=== PATIENT | female | born 1975 | race Caucasian/White ===

== ENCOUNTER 2018-05-02 09:17 | Emergency (ER) | payer MEDICAID ==
[~2018-05-02] VITALS: Ht 154.9 cm; Wt 103.8 kg
[~2018-05-02 09:17] MED LIST: ACET325T33 PO; IBUP800T48 PO; LISI40TA3 PO; [UNRECOGNIZED DRUG - REMARK]
[2018-05-02 09:22] VITALS: BP 140/81; PULSE 106; RESP 24; Ht 154.9 cm; Wt 103.8 kg
[2018-05-02] MEDS ORDERED: NAPR-985 PO (09:40)
[2018-05-02] MEDS ORDERED: PROM6.2515 PO (09:40)
[2018-05-02] MEDS ORDERED: BENZ-6 PO (09:40)
[2018-05-02] MEDS ORDERED: PSEU-79 PO (09:40)
--- NOTE | 2018-05-02 11:18 | ERD ---
ER Documentation Chief Complaint Chief Complaint cough , headache, fever and runny nose x 5 days HPI 42-year-old female presenting with dry cough times 5 days with runny nose and ear pain. Patient had tactile fevers but has not taken medication is afebrile at today's visit. Patient denies any chest pain or shortness of breath. Denies any changes to urination or bowel movement. Denies vomiting. Medical history of diabetes [id number] and hypertension. NKDA. Surgical history C- section. Social history denies ROS All systems reviewed and are negative except as per history of present illness. Medications Home Meds Active Scripts Naproxen* (Naprosyn*) 500 Mg Tablet, 500 MG PO BID PRN for PAIN AND/OR INFLAMMATION, #30 TAB Prov:ALICIA MCLEAN PA-C 05/02/18 Benzonatate* (Tessalon Perle*) 100 Mg Capsule, 100 MG PO Q8H PRN for COUGH, #30 CAP Prov:ALICIA MCLEAN PA-C 05/02/18 Promethazine Hcl* (Promethazine Hcl* Syrup) 6.25 Mg/5 Ml Syrup, 6.25 MG PO Q6H PRN for COUGH, #100 ML Prov:ALICIA MCLEAN PA-C 05/02/18 Pseudoephedrine Hcl* (Suphedrin*) 30 Mg Tablet, 30 MG PO Q6 PRN for CONGESTION, #30 TAB Prov:ALICIA MCLEAN PA-C 05/02/18 Acetaminophen* (Tylenol*) 325 Mg Tablet, 2 TAB PO Q8 PRN for PAIN AND OR ELEVATED TEMP, #20 TAB Prov:ALICIA MCLEAN PA-C 05/18/15 Ibuprofen* (Motrin*) 800 Mg Tab, 800 MG PO Q6, #30 TAB Prov:ALICIA MCLEAN PA-C 05/18/15 Reported Medications Lisinopril* (Lisinopril*) 40 Mg Tablet, 40 MG PO DAILY, TAB 12/27/13 [unk meds] No Conflict Check 02/22/12 Allergies Allergies: Coded Allergies: No Known Drug Allergies (Verified Allergy, Unknown, 05/02/18) PMhx/Soc History of Surgery: Yes () Anesthesia Reaction: No Hx Neurological Disorder: No Hx Respiratory Disorders: No Hx Cardiac Disorders: Yes (HTN) Hx Psychiatric Problems: No Hx Miscellaneous Medical Probl: Yes (DM) Hx Alcohol Use: No Hx Substance Use: No Hx Tobacco Use: No Smoking Status: Never smoker FmHx Family History: No diabetes, No coronary disease, No other Physical Exam Vitals Vital Signs Date Temp Pulse Resp B/P (MAP) Pulse Ox O2 O2 Flow FiO2 Time Delivery Rate 05/02/18 98.8 106 24 140/81 100 09:22 (100) Physical Exam GENERAL: The patient is well-appearing, well-nourished, in no acute distress HEENT: Atraumatic. Conjunctivae are pink. Pupils equal, round, and reactive to light. There is no scleral icterus. Tympanic membranes clear bilaterally. Oropharynx clear. NECK: C-spine is soft and supple. There is no meningismus. There is no cervical lymphadenopathy. CHEST: Clear to auscultation bilaterally. There are no rales, wheezes or rhonchi. HEART: Regular rate and rhythm. No murmurs, clicks, rubs or gallops. Procedures/MDM MDM: 42-year-old female presenting with URI type symptoms. Patient likely has viral cough. I do not feel antibiotics are indicated. Patient is discharged with supportive medications and told to follow-up with primary care within 1-2 days for close evaluation. I have low suspicion for bacterial HEENT infection. I have low suspicion for meningitis or sepsis. Patient is discharged stricter precautions and told to follow-up with primary care within 1-2 days for close evaluation. All questions answered at discharge Departure Diagnosis: Primary Impression: URI (upper respiratory infection) Condition: Stable Patient Instructions: Uri, Viral, No Abx (Adult) Referrals: COMM[facility]ITY CLIN[facility] YOU HAVE RECEIVED A MEDICAL SCREENING EXAM AND THE RESULTS INDICATE THAT YOU DO NOT HAVE A CONDITION THAT REQUIRES URGENT TREATMENT IN THE EMERGENCY DEPARTMENT. FURTHER EVALUATION AND TREATMENT OF YOUR CONDITION CAN WAIT UNTIL YOU ARE SEEN IN YOUR DOCTORS OFFICE WITHIN THE NEXT 1-2 DAYS. IT IS YOUR RESPONSIBILITY TO MAKE AN APPOINTMENT FOR FOLOW-UP CARE. IF YOU HAVE A PRIMARY DOCTOR --you should call your primary doctor and schedule an appointment IF YOU DO NOT HAVE A PRIMARY DOCTOR YOU CAN CALL OUR PHYSICIAN REFERRAL HOTLINE AT IF YOU CAN NOT AFFORD TO SEE A PHYSICIAN YOU CAN CHOSE FROM THE FOLLOWING [facility] [address] [facility] [address] [facility] [address] [facility] [address] [facility]. [facility] [address] [facility]. [facility] [address] Additional Instructions: FOLLOW UP WITH YOUR PRIMARY CARE PHYSICIAN TOMORROW.Return to this facility if you are not improving as expected. ALICIA MCLEAN PA-C May 02, 2018 11:18
== END 2018-05-02 09:44 | disposition home or self-care (01) ==
LOC: FTE 09:17
DX: J06.9 Acute upper respiratory infection, unspecified (principal); E11.9 Type 2 diabetes mellitus without complications; I10 Essential (primary) hypertension
CPT/HCPCS: 99282

== ENCOUNTER 2018-09-03 10:39 | Inpatient (IN) | payer MEDICAID ==
[~2018-09-03] VITALS: Ht 154.9 cm; Wt 108.4 kg
[~2018-09-03 10:39] MED LIST changes: +BENZ-6 PO; +NAPR-985 PO; +PROM6.2515 PO; +PSEU-79 PO
[2018-09-03 10:44] VITALS: Ht 154.9 cm; Wt 108.4 kg
[2018-09-03] MEDS ORDERED: PREN1COM15 PO (10:46)
[2018-09-03] MEDS ORDERED: METF500T24 PO (10:46)
[2018-09-03] MEDS ORDERED: LACTATED RINGER'S 1,000 ML IV SCH (13:17)
[2018-09-03] MEDS ORDERED: AL HYDROX/MG HYDROX/SIMETH 30 ML CUP PO PRN (13:30)
[2018-09-03] MEDS ORDERED: DEXTROSE 50% 50 ML SYRINGE IV PRN ×2 (17:00)
[2018-09-03] MEDS ORDERED: GLUCOSE GEL 15 GRAM TUBE PO PRN ×2 (17:00)
[2018-09-03] MEDS ORDERED: GLUCAGON 1 MG INJ IM PRN (17:00)
[2018-09-03] MEDS ORDERED: GLUCOSE GEL 15 GRAM TUBE BUCCAL PRN (17:00)
[2018-09-03] MEDS ORDERED: ACCU-CHEK XX SCH ×2 (17:05→17:35)
[2018-09-03] MEDS ORDERED: metFORMIN 500 MG TAB GTB SCH (17:35)
[2018-09-03] MEDS: metFORMIN 500 MG TAB PO SCH (19:00)
[2018-09-03] MEDS: ACCU-CHEK XX SCH (20:05)
[2018-09-03] MEDS: INSULIN ASPART [NOVOLOG] 3 ML PEN SC SCH (20:18)
[2018-09-03] MEDS: BETAMET NA PHOS/AC(6 MG/ML) 2 ML INJ SYG IM SCH (20:20)
[2018-09-03] MEDS ORDERED: metFORMIN 500 MG TAB PO ONE (22:30)
--- NOTE | 2018-09-03 22:42 | HP ---
Date/Time of Note Date/Time of Note DATE: 09/03/18 TIME: 22:31 OB - History Hx of Present Free Text/Dictation 42 YO with EDC 10/17/2018 with IUP at 33.5 weeks. she reports 19 years h/o CHTN. she was on Lisinopril prior to . she was not aware that she was so she was taking Lisinopril until end of June. she stopped the Lisinopril, but was not given any other medication to control her BP. she also gives 2 year h/o DM. she was on Metformin prior to . HgbA1C was 6.5 on 07/20/2018. Her initial PNC visit was 08/06/2018 and her BP was 036/84. she was 29.5 weeks at that time. she was sent to Triage for PIH evaluation. she had elevated BP in Triage. she was admitted to antepartum for steroids and further evaluation. Dr. Edmonds provided sliding scale. she denies headache, visual changes or RUQ pain. she denies UC, LOF per vagina or vaginal bleeding. she reports good FM. NST is reassuring. Care: Limited Care Obstetrical Complications: Other (Chronic Hypertension, Diabetes Type 2, Obesity, Late onset of care, AMA) Medical Complications: Other (Chronic Hypertension, Diabetes Type 2, Obesity) Past Family/Social History * Past Medical, Surgical, Family and Obstetric Histories reviewed from chart. OB Admission Exam Physical Exam HEENT: WNL Heart: Rhythm Normal Lungs: Clear, Equal Abdomen: WNL Extremities: Normal Reflexes: Normal Last 72 hourBlood Glucose Bedside Glucose - 72 Hours Test 09/03/18 20:05 Bedside Glucose 154 mg/dL (70-220) Last 72 hours Lab Results CBC & BMP 09/03/18 10:57 Liver Function Test 09/03/18 10:57 Alanine Aminotransferase (ALT/SGPT) 19 Albumin 3.8 Alkaline Phosphatase 104 Aspartate Amino Transf (AST/SGOT) 16 Direct Bilirubin 0.00 Total Protein 7.0 OB Assessment/Plan Other Assessment: IUP at 33.5 weeks Chronic Hypertension Diabetes Type 2 Obesity Late onset of care AMA r/o superimposed preeclampsia Other plan: 24 hour urine collection PIH labs are normal Steroids JASSON WORLEY MD September 03, 2018 22:41
[2018-09-04] MEDS ORDERED: metFORMIN 500 MG TAB PO SCH (08:05)
[2018-09-04] MEDS: ACCU-CHEK XX SCH ×4 (08:40→20:58)
[2018-09-04] MEDS: metFORMIN 500 MG TAB PO SCH ×2 (08:57→17:48)
[2018-09-04] MEDS: FERROUS SULFATE (EC) 325 MG TAB PO SCH (08:57)
[2018-09-04] MEDS: DOCUSATE SODIUM 100 MG CAP PO SCH (08:57)
[2018-09-04] MEDS: PRENATAL VITAMIN PO SCH (08:57)
[2018-09-04] MEDS ORDERED: PRENATAL VITAMIN PO SCH (09:00)
[2018-09-04] MEDS ORDERED: LACTATED RINGER'S 1,000 ML IV SCH (10:00)
--- NOTE | 2018-09-04 10:02 | PN ---
Date/Time of Note Date/Time of Note DATE: 09/04/18 TIME: 10:01 OB Subjective Subjective Subjective Denies UC, LOF per vagina or vaginal bleeding reports good FM Denies headache, visual changes or RUQ pain OB Objective HEENT: WNL Heart: Rhythm Normal Lungs: Clear Abdomen: WNL OB Assessment/Plan Other Assessment: Other Assessment: IUP at 33.5 weeks Chronic Hypertension Diabetes Type 2 Obesity Late onset of care AMA r/o superimposed preeclampsia Other plan: Other plan: 24 hour urine collection PIH labs are normal Steroids JASSON WORLEY MD September 04, 2018 10:02
[2018-09-04] MEDS: BETAMET NA PHOS/AC(6 MG/ML) 2 ML INJ SYG IM SCH (15:00)
[2018-09-04] MEDS: INSULIN ASPART [NOVOLOG] 3 ML PEN SC SCH ×2 (15:38→21:03)
[2018-09-04] MEDS ORDERED: BETAMET NA PHOS/AC(6 MG/ML) 2 ML INJ SYG IM SCH (22:00)
[2018-09-05] MEDS: PRENATAL VITAMIN PO SCH (08:29)
[2018-09-05] MEDS: DOCUSATE SODIUM 100 MG CAP PO SCH (08:29)
[2018-09-05] MEDS: FERROUS SULFATE (EC) 325 MG TAB PO SCH (08:30)
[2018-09-05] MEDS: metFORMIN 500 MG TAB PO SCH ×2 (08:32→17:59)
--- NOTE | 2018-09-05 09:12 | QN ---
Documentation Comment OB Subjective Subjective Subjective Denies UC, LOF per vagina or vaginal bleeding reports good FM Denies headache, visual changes or RUQ pain OB Objective OB Objective HEENT: WNL Heart: Rhythm Normal Lungs: Clear Abdomen: WNL OB Assessment/Plan OB Assessment/Plan Other Assessment: Other Assessment: IUP at 33.5 weeks Chronic Hypertension Diabetes Type 2. BS are high due to steroids, expect improvement in a day or 2 Obesity Late onset of care AMA No evidence of current preeclampsia. she has normal PIH labs and 24 hour urine collection. she denies headache, visual changes or RUQ pain. Other plan: Other plan: Start Labetalol 200 mg TID if OK with Dr. Edmonds then d/c home on Labetalol after BS are improved. will need NST/JACY 2x week JASSON WORLEY MD September 05, 2018 09:12
[2018-09-05] MEDS: INSULIN ASPART [NOVOLOG] 3 ML PEN SC SCH ×3 (10:41→20:26)
[2018-09-05] MEDS ORDERED: LABETALOL 200 MG TAB PO SCH (14:00)
--- NOTE | 2018-09-05 15:11 | CONS ---
Consultation Date/Type/Reason Admit Date/Time September 03, 2018 at 11:55 Date of Consultation: September 04, 2018 Type of Consult Medicine Reason for Consultation Requested by Dr. Mendieta to certified lactation counselor mother regarding anticipated outcome and course of infant born at 33 completed weeks. Mother is a 42 yo [id number] with EDC 10/17/2018 (EGA 33 6/7 wks). complicated by morbid obesity, chronic hypertension, and Type 2 diabetes. Mother admitted 09/03 for evaluation of possible superimposed PIH. Mother receiving Betamethasone. 24 hour urine collection and maternal labs not supportive of PIH. Met with mother and asset protection manager at bedside and discussed certain NICU admission at this gestation. Discussed potential respiratory morbidity associated with prematurity but emphasized beneficial effects of steroids. Discussed neurologic immaturity in terms of feeding problems which will most likely determine the duration of hospitalization, as well as body temperature maintenance. Discussed possibility of infection and potential complications. Mother appeared to understand the mjor complications of at this gestation and asked appropriate questions. Assured mother of availability to answer additional questions which may arise Date/Time of Note DATE: 09/05/18 TIME: 14:55 Past Medical History Home Meds Reported Medications Metformin Hcl* (Metformin Hcl*) 500 Mg Tablet, 500 MG PO WITH BREAKFAST, #30 TAB 09/03/18 Vit #105/Iron/FA/Dha (Prena1 True Combo Pack) 1 Each Combo..pkg, 1 EACH PO 09/03/18 Medications Current Medications Prenat Multivit/ [place]/Iron/Folic Ac () 1 tab DAILY PO Last administered on 09/05/18at 08:29; Admin Dose 1 TAB; Start 09/04/18 at 09:00 Ferrous Sulfate (Ferrous Sulfate (Ec)) 325 mg DAILY PO Last administered on 09/05/18at 08:30; Admin Dose 325 MG; Start 09/04/18 at 09:00 Docusate Sodium (Colace) 100 mg DAILY PO Last administered on 09/05/18at 08:29; Admin Dose 100 MG; Start 09/04/18 at 09:00 Metformin HCl (Glucophage) 500 mg WITH DINNER PO Last administered on 09/04/18at 17:48; Admin Dose 500 MG; Start 09/03/18 at 18:05 Metformin HCl (Glucophage) 500 mg WITH BREAKFAST PO Last administered on 09/05/18at 08:32; Admin Dose 500 MG; Start 09/04/18 at 08:05 Al Hydrox/Mg Hydrox/Simethicone (Mag-Al Plus) 30 ml Q6H PRN PO .GI UPSET; Start 09/03/18 at 13:30 Diagnostic Test (Pha) (Accu-Chek) 1 ea FBSPP XX Last administered on 09/04/18at 20:58; Admin Dose 1 EA; Start 09/03/18 at 20:05 Insulin Aspart (Novolog Insulin Pen) NOVOLOG *CUSTOM* ALGORITHM 2 HOURS AFTER MEALS SC Last administered on 09/05/18at 14:34; Admin Dose 4 UNIT; Start 09/03/18 at 20:05 Miscellaneous Information 1 ea NOTE XX ; Start 09/03/18 at 17:00 Glucose (Glutose) 15 gm Q15M PRN PO DECREASED GLUCOSE; Start 09/03/18 at 17:00 Glucose (Glutose) 22.5 gm Q15M PRN PO DECREASED GLUCOSE; Start 09/03/18 at 17:00 Dextrose (D50w Syringe) 25 ml Q15M PRN IV DECREASED GLUCOSE; Start 09/03/18 at 17:00 Dextrose (D50w Syringe) 50 ml Q15M PRN IV DECREASED GLUCOSE; Start 09/03/18 at 17:00 Glucagon (Glucagen) 1 mg Q15M PRN IM DECREASED GLUCOSE; Start 09/03/18 at 17:00 Glucose (Glutose) 15 gm Q15M PRN BUCCAL DECREASED GLUCOSE; Start 09/03/18 at 17 :00 Allergies: Coded Allergies: No Known Drug Allergies (Verified Allergy, Unknown, 09/03/18) Social History Smoking Status: Never smoker Exam/Review of Systems Results Result Diagram: 09/03/18 1057 09/03/18 1057 Results 24hrs Laboratory Tests Test 09/04/18 15:10 09/04/18 15:30 09/04/18 20:36 09/05/18 08:32 Bedside Glucose 160 170 157 Urine Random 72.37 Creatinine Urine Collection 24 Duration Urine Total Volume 2200 24 Hours Urine Creatinine 24 Timed Creatinine Clearance 212.6 H Urine Total Volume 2200 (Protein) Urine Total Protein 198.0 24 Hour Test 09/05/18 10:34 09/05/18 14:29 Bedside Glucose 171 150 Medications Medication Current Medications Prenat Multivit/ [place]/Iron/Folic Ac () 1 tab DAILY PO Last administered on 09/05/18at 08:29; Admin Dose 1 TAB; Start 09/04/18 at 09:00 Ferrous Sulfate (Ferrous Sulfate (Ec)) 325 mg DAILY PO Last administered on 09/05/18at 08:30; Admin Dose 325 MG; Start 09/04/18 at 09:00 Docusate Sodium (Colace) 100 mg DAILY PO Last administered on 09/05/18at 08:29; Admin Dose 100 MG; Start 09/04/18 at 09:00 Metformin HCl (Glucophage) 500 mg WITH DINNER PO Last administered on 09/04/18at 17:48; Admin Dose 500 MG; Start 09/03/18 at 18:05 Metformin HCl (Glucophage) 500 mg WITH BREAKFAST PO Last administered on 09/05/18at 08:32; Admin Dose 500 MG; Start 09/04/18 at 08:05 Al Hydrox/Mg Hydrox/Simethicone (Mag-Al Plus) 30 ml Q6H PRN PO .GI UPSET; Start 09/03/18 at 13:30 Diagnostic Test (Pha) (Accu-Chek) 1 ea FBSPP XX Last administered on 09/04/18at 20:58; Admin Dose 1 EA; Start 09/03/18 at 20:05 Insulin Aspart (Novolog Insulin Pen) NOVOLOG *CUSTOM* ALGORITHM 2 HOURS AFTER MEALS SC Last administered on 09/05/18at 14:34; Admin Dose 4 UNIT; Start 09/03/18 at 20:05 Miscellaneous Information 1 ea NOTE XX ; Start 09/03/18 at 17:00 Glucose (Glutose) 15 gm Q15M PRN PO DECREASED GLUCOSE; Start 09/03/18 at 17:00 Glucose (Glutose) 22.5 gm Q15M PRN PO DECREASED GLUCOSE; Start 09/03/18 at 17:00 Dextrose (D50w Syringe) 25 ml Q15M PRN IV DECREASED GLUCOSE; Start 09/03/18 at 17:00 Dextrose (D50w Syringe) 50 ml Q15M PRN IV DECREASED GLUCOSE; Start 09/03/18 at 17:00 Glucagon (Glucagen) 1 mg Q15M PRN IM DECREASED GLUCOSE; Start 09/03/18 at 17:00 Glucose (Glutose) 15 gm Q15M PRN BUCCAL DECREASED GLUCOSE; Start 09/03/18 at 17:00 ORLANDO GRAHAM MD September 05, 2018 15:11
[2018-09-05] MEDS: ACCU-CHEK XX SCH ×2 (19:00→20:19)
--- NOTE | 2018-09-06 03:08 | CONS ---
DATE OF ADMISSION: 09/03/2018 DATE OF CONSULTATION: 09/03/2018 The patient at the time of the consult on the , was 33 weeks and 5 days, was sent from the clinic with elevated blood pressures. She is chronic hypertensive. Her blood pressures have been mostly i n the moderate range. She has no symptoms and preeclampsia labs are normal. She is also diabetic un controlled, on metformin. RECOMMENDATIONS: Insulin sliding scale for control of blood sugar since she is diabetic and betameth asone for increases the blood glucose values. I would not recommend antihypertensive medication unle ss the patient has persistent severe high blood pressure ranges. Increased glucose values generally resolve 4 to 5 days after the betamethasone is given, and at that time, the patient can be discharged home with twice weekly NST. However, if she has persistent sever e blood pressures, then we will reconsult and reconsider the patient's situation. Dictated By: BRUNO CHRISTOPHER MD ST/NTS Conf#: [id number] DID#: [id number] CC: JASSON WORLEY MD; OLEG CORDERO MD;*End*
[2018-09-06] MEDS: PRENATAL VITAMIN PO SCH (08:28)
[2018-09-06] MEDS: FERROUS SULFATE (EC) 325 MG TAB PO SCH (08:28)
[2018-09-06] MEDS: DOCUSATE SODIUM 100 MG CAP PO SCH (08:28)
[2018-09-06] MEDS: metFORMIN 500 MG TAB PO SCH (08:29)
--- NOTE | 2018-09-06 09:50 | DS ---
Date/Time of Note Date/Time of Note DATE: 09/06/18 TIME: 09:46 Obstetrical Discharge Record Final Diagnosis Final Diagnosis: not delivered Other Final Diagnosis Admission history: 42 YO with EDC 10/17/2018 with IUP at 33.5 weeks. she reports 19 years h/o CHTN. she was on Lisinopril prior to . she was not aware that she was so she was taking Lisinopril until end of June. she stopped the Lisinopril, but was not given any other medication to control her BP. she also gives 2 year h/o DM. she was on Metformin prior to . HgbA1C was 6.5 on 07/20/2018. Her initial PNC visit was 08/06/2018 and her BP was 036/84. she was 29.5 weeks at that time. she was sent to Triage for PIH evaluation. she had elevated BP in Triage. she was admitted to antepartum for steroids and further evaluation. Dr. Edmonds provided sliding scale. she denies headache, visual changes or RUQ pain. she denies UC, LOF per vagina or vaginal bleeding. she reports good FM. NST is reassuring. Hospital Course: she had negative PIH labs and normal 24 hour urine collection. has steroids. had elevated BS after steroids, but today FBS is 90. she is well educated on the importance of compliance with antepartum testing and monitoring her BP at home. she knows the Preeclampsia risks to her and baby including stroke, abruption, DIC, maternal and . she is aware of PIH precautions. Complications Other (DM, AMA, CHTN, Obesity, Late limited PNC) Augmentation: No Induction: No Rupture of Membranes: No Condition on Discharge Physical Assessment Voiding: Yes Bowel Movement: Yes Breast: Soft, non-tender, Filling Abdomen and Incision: soft, obese, gravid Calf Tenderness: No Patient Condition: Good JASSON WORLEY MD September 06, 2018 09:49
== END 2018-09-06 12:21 | disposition home or self-care (01) | DRG 832 ==
LOC: OBT 10:39 → L-D 10:39 → OBT 11:55 → PP1 11:55
PROVIDERS: ADMIT Specialist; ATTEND Specialist
DX: O10.913 Unspecified pre-existing hypertension complicating pregnancy, third trimester (principal); O24.113 Pre-existing type 2 diabetes mellitus, in pregnancy, third trimester; O09.523 Supervision of elderly multigravida, third trimester; E11.9 Type 2 diabetes mellitus without complications; O99.213 Obesity complicating pregnancy, third trimester; Z3A.33 33 weeks gestation of pregnancy
CPT/HCPCS: 76818; 80053; 81001; 82575; 82962; 84156; 84560; 85025; 85610; 85730; G0463; J0702; J1815; J7120

== ENCOUNTER 2018-09-09 06:24 | Emergency (ER) | payer MEDICAID ==
[~2018-09-09] VITALS: Ht 162.6 cm; Wt 110.0 kg
[~2018-09-09 06:24] MED LIST changes: +METF500T24 PO; +PREN1COM15 PO
[2018-09-09 06:26] VITALS: BP 142/90; PULSE 82; RESP 18; Ht 162.6 cm; Wt 110.0 kg
[2018-09-09] MEDS ORDERED: PREN-93 PO (10:31)
[2018-09-09] MEDS ORDERED: LABE100T39 PO (10:32)
--- NOTE | 2018-09-09 10:34 | ERD ---
ER Documentation Chief Complaint Chief Complaint chest pain with cough x 3 days , 35 weeks preg HPI This is a 2 para 1 42-year-old female currently 35 weeks dated by last menstrual period. The patient indicates that she is presented to the emergency department as she has had a nonproductive cough for 2 days. She indicates she is experiencing a sharp shooting chest pain that occurs while coughing. She said no fevers or shaking or chills. She denies any abdominal pain. She said no abnormal vaginal bleeding. She has no frequency urgency or dysuria. The patient has a past medical history of hypertension and diabetes. ROS All systems reviewed and are negative except as per history of present illness. Medications Home Meds Reported Medications Labetalol Hcl (Labetalol Hcl) 100 Mg Tab, 100 MG PO BID, TAB 09/09/18 Metformin Hcl* (Metformin Hcl*) 500 Mg Tablet, 500 MG PO WITH BREAKFAST, #30 TAB 09/03/18 Vit #105/Iron/FA/Dha (Prena1 True Combo Pack) 1 Each Combo..pkg, 1 EACH PO 09/03/18 Allergies Allergies: Coded Allergies: No Known Drug Allergies (Verified Allergy, Unknown, 09/09/18) PMhx/Soc History of Surgery: Yes () Anesthesia Reaction: No Hx Neurological Disorder: No Hx Respiratory Disorders: No Hx Cardiac Disorders: Yes (HTN) Hx Psychiatric Problems: No Hx Miscellaneous Medical Probl: Yes (DM) Hx Alcohol Use: No Hx Substance Use: No Hx Tobacco Use: No Smoking Status: Never smoker Physical Exam Vitals Vital Signs Date Temp Pulse Resp B/P (MAP) Pulse Ox O2 O2 Flow FiO2 Time Delivery Rate 09/09/18 97.8 82 18 142/90 100 06:26 (107) Physical Exam Constitutional:Well-developed. Well-nourished. HEENT:Normocephalic. Atraumatic.Pupils were equal round reactive to light. Moist mucous membranes.No tonsillar exudates. Neck: No nuchal rigidity. No lymphadenopathy. No posterior cervical spine tenderness or step-offs. Respiratory: Not using accessory muscles of respiration.Lungs were clear to auscultation bilaterally. No rhonchi. No rales. No wheezing. Cardiovascular: Regular rate regular rhythm.No murmurs. No rubs were appreciated.S1, S2 normal. Distal pulses are palpable 2+ bilaterally. GI: Abdomen was soft with gravid uterus. Nontender. Non Distended. No pulsatile abdominal masses or bruits. No rebound. No guarding. Bowel sounds were present and normal. Muscle skeletal: Full range of motion of both the upper and lower extremities bilaterally.Normal muscle tone.No assymetrical calf tenderness or swelling. Skin: No petechia, no purpura. No lesions on the palms or the soles of the feet. No maculopapular rash. NEURO: Patient was alert, awake, orientated x3.No facial droop. Gait observed and normal with no ataxia.Speech had regular rate and rhythm. No focal neurological deficits. Result Diagram: 09/09/18 0659 09/09/18 0659 Results 24 hrs Laboratory Tests Test 09/09/18 06:59 White Blood Count 8.2 10^3/ul Red Blood Count 3.65 10^6/ul Hemoglobin 10.0 g/dl Hematocrit 31.1 % Mean Corpuscular Volume 85.2 fl Mean Corpuscular Hemoglobin 27.4 pg Mean Corpuscular Hemoglobin Concent 32.2 g/dl Red Cell Distribution Width 16.5 % Platelet Count 177 10^3/UL Mean Platelet Volume 11.3 fl Immature Granulocytes % 0.900 % Neutrophils % 74.2 % Lymphocytes % 13.1 % Monocytes % 8.9 % Eosinophils % 2.7 % Basophils % 0.2 % Nucleated Red Blood Cells % 0.0 /100WBC Immature Granulocytes # 0.070 10^3/ul Neutrophils # 6.1 10^3/ul Lymphocytes # 1.1 10^3/ul Monocytes # 0.7 10^3/ul Eosinophils # 0.2 10^3/ul Basophils # 0.0 10^3/ul Nucleated Red Blood Cells # 0.0 10^3/ul Sodium Level 140 mmol/L Potassium Level 4.2 mmol/L Chloride Level 112 mmol/L Carbon Dioxide Level 20 mmol/L Anion Gap 8 Blood Urea Nitrogen 10 mg/dl Creatinine 0.54 mg/dl Est Glomerular Filtrat Rate mL/min > 60 mL/min Glucose Level 93 mg/dl Calcium Level 9.1 mg/dl Total Bilirubin 0.5 mg/dl Direct Bilirubin 0.00 mg/dl Indirect Bilirubin 0.5 mg/dl Aspartate Amino Transf (AST/SGOT) 27 IU/L Alanine Aminotransferase (ALT/SGPT) 28 IU/L Alkaline Phosphatase 112 IU/L Creatine Kinase 81 IU/L Creatine Kinase Index 1.6 Creatinine Kinase MB (Mass) 1.27 ng/ml Troponin I < 0.012 ng/ml Total Protein 6.5 g/dl Albumin 3.3 g/dl Globulin 3.20 g/dl Albumin/Globulin Ratio 1.03 Procedures/MDM The patient presented to the emergency department complaining of chest pain. My clinical evaluation and workup was to distinguish minor causes of chest pain from acute life threatening cardiopulmonary causes such as myocardial infarction, pulmonary embolism, aortic dissection, esophageal rupture, cardiac tamponade, The patient was placed on a rn cardiac, continuous pulse oximetry. 12 Lead EKG tracing ordered and reviewed by myself showed: Normal sinus rhythm of 81 bpm and no arrhythmia. NE interval normal. QRS duration normal. No ST segment elevation No ST segment depression. No changes consistent with acute ischemia. The patients chest pain was reproduced by palpation and horizontal flexion of the arms. It was my clinical impression that the pain was a result of inflammation of the skin and subcutaneous structures of the chest wall versus myocardial ischemia. I felt the patient had low-risk chest pain and could therefore be safely discharged with close follow-up. The patient was sent up to labor and delivery for toco dynamic monitoring. I felt her symptoms were result of seeing above of costochondritis. She was instructed that she can take Tylenol if needed for analgesia control. Departure Diagnosis: Primary Impression: Acute costochondritis Condition: Fair Patient Instructions: Costochondritis JENN AMARAL MD September 09, 2018 10:34
== END 2018-09-09 10:11 | disposition home or self-care (01) ==
LOC: E/R 06:24
DX: O99.89 Other specified diseases and conditions complicating pregnancy, childbirth and the puerperium (principal); M94.0 Chondrocostal junction syndrome [Tietze]; O10.013 Pre-existing essential hypertension complicating pregnancy, third trimester; O24.313 Unspecified pre-existing diabetes mellitus in pregnancy, third trimester; Z3A.35 35 weeks gestation of pregnancy; Z79.84 Long term (current) use of oral hypoglycemic drugs
CPT/HCPCS: 80053; 82550; 82553; 84484; 85025; Z7502; 93005

== ENCOUNTER 2018-09-09 10:18 | Inpatient (IN) | payer MEDICAID ==
[~2018-09-09] VITALS: Ht 157.5 cm; Wt 110.0 kg
[~2018-09-09 10:18] MED LIST changes: -ACET325T33 PO; -BENZ-6 PO; +EPHEDrine 25 MG/5 ML SYG ONE; -IBUP800T48 PO; -LISI40TA3 PO; -NAPR-985 PO; -PROM6.2515 PO; -PSEU-79 PO; -[UNRECOGNIZED DRUG - REMARK]
[2018-09-09 10:29] VITALS: Ht 157.5 cm; Wt 110.0 kg
--- NOTE | 2018-09-09 10:30 | ERD ---
ER Documentation Chief Complaint Chief Complaint ROS All systems reviewed and are negative except as per history of present illness. Medications Home Meds Reported Medications Labetalol Hcl (Labetalol Hcl) 100 Mg Tab, 100 MG PO BID, TAB 09/09/18 Metformin Hcl* (Metformin Hcl*) 500 Mg Tablet, 500 MG PO WITH BREAKFAST, #30 TAB 09/03/18 Vit #105/Iron/FA/Dha (Prena1 True Combo Pack) 1 Each Combo..pkg, 1 EACH PO 09/03/18 Allergies Allergies: Coded Allergies: No Known Drug Allergies (Verified Allergy, Unknown, 09/09/18) PMhx/Soc History of Surgery: Yes () Anesthesia Reaction: No Hx Neurological Disorder: No Hx Respiratory Disorders: No Hx Cardiac Disorders: Yes (HTN) Hx Psychiatric Problems: No Hx Miscellaneous Medical Probl: Yes (DM) Hx Alcohol Use: No Hx Substance Use: No Hx Tobacco Use: No Departure Diagnosis: Primary Impression: Acute costochondritis JENN AMARAL MD September 09, 2018 10:30
[2018-09-09] MEDS ORDERED: PREN-93 PO (10:31)
[2018-09-09] MEDS ORDERED: LABE100T39 PO (10:32)
[2018-09-09] MEDS ORDERED: LABETALOL 100 MG TAB PO ONE (12:22)
[2018-09-09] MEDS ORDERED: ACETAMINOPHEN 500 MG TAB PO STA (12:33)
--- NOTE | 2018-09-09 12:46 | HP ---
Date/Time of Note Date/Time of Note DATE: 09/09/18 TIME: 12:34 OB - History Hx of Present Free Text/Dictation 42 YO with EDC 10/17/2018 with IUP at 34.1 weeks. she reports 19 years h/o CHTN. she was on Lisinopril prior to . she was not aware that she was so she was taking Lisinopril until end of June. she stopped the Lisinopril, but was not given any other medication to control her BP until 6 d ays ago. she was prescribed Labetalol 100 mg BID from [facility]. she also gives 2 year h/o DM. she was on Metformin prior to . HgbA1C was 6.5 on 07/20/2018. Her initial PNC visit was 08/06/2018 and her BP was 136/84. she was 29.5 weeks at that time. she was admitted to antepartum and steroids were given 6 days ago. At that time her BPs were normal to mild range and she had normal 24 hour urine collection and normal labs. Today she reported to ER with c/o chest pain and cough. In ER she had blood work and EKG and she was cleared with Dx of Costochondritis. she c/o mild headache since 0600 today. She denies visual changes or RUQ pain. She denies UC, LOF per vagina or vaginal bleeding. she reports good FM. NST is reassuring. Her BP is 168/93 She desires to have repeat delivery. I discussed with the patient the risks, benefits, indications, and alternatives of procedure including but not limited to risks of infection, bleeding, damage to other organs, bowel, bladder, hernia formation, scar formation, possibility of blood transfusion, possible need for emergency hysterectomy. She is aware that she is at higher surgical risks due to obesity and diabetes. She was allowed to ask questions. All her questions were answered. Informed consent has been obtained. Care: Limited Care Obstetrical Complications: Other (Chronic hypertension, Diabetes, Obesity, superimposed PIH with severe features) Medical Complications: Other (Chronic hypertension, Diabetes, Obesity) Past Family/Social History * Past Medical, Surgical, Family and Obstetric Histories reviewed from chart. OB Admission Exam Physical Exam HEENT: WNL Heart: Rhythm Normal Lungs: Clear, Equal Abdomen: WNL Extremities: Normal Reflexes: Normal Last 72 hourBlood Glucose Bedside Glucose - 72 Hours Test 09/09/18 10:49 Bedside Glucose 73 mg/dL (70-220) OB Assessment/Plan Other Assessment: IUP at 34.1 weeks Chronic hypertension with superimposed PIH with severe features. had steroids already Diabetes cough and chest pain, r/o pulmonary edema. will do chest x-ray Obesity h/o C/S Other plan: close observation Chest X-ray Repeat C/S JASSON WORLEY MD September 09, 2018 12:45
[2018-09-09] MEDS ORDERED: CEFAZOLIN 3 GM in DEXTROSE 5% 100 ML IV ONE (13:00)
[2018-09-09] MEDS ORDERED: OXYTOCIN 30 UNITS/LR 500 ML IV SCH (13:00)
[2018-09-09] MEDS ORDERED: MISOPROSTOL 200 MCG TAB PR PRN ×2 (13:00→20:30)
[2018-09-09] MEDS ORDERED: CARBOPROST 250 MCG INJ IM PRN (13:00)
[2018-09-09] MEDS ORDERED: METHYLERGONOVINE 0.2 MG INJ IM PRN (13:00)
[2018-09-09] MEDS ORDERED: OXYTOCIN 30 UNITS/LR 500 ML IV PRN (13:00)
[2018-09-09] MEDS: LACTATED RINGER'S 1,000 ML IV SCH ×2 (13:38→19:54)
[2018-09-09] MEDS ORDERED: DEXTROSE 5%-LR 1,000 ML IV ONE (19:30)
[2018-09-09] MEDS ORDERED: LACTATED RINGER'S 1,000 ML IV SCH (20:20)
[2018-09-09] MEDS ORDERED: morphine SULFATE/PF (10 MG/10 ML) INJ ONE (20:21)
[2018-09-09] MEDS ORDERED: OXYCODONE/ACETAMINOPHEN (5/325) TAB PO PRN ×2 (20:30)
[2018-09-09] MEDS ORDERED: NIFEdipine 10 MG CAP PO PRN (20:30)
[2018-09-09] MEDS ORDERED: LANOLIN HPA 1 PKT TOP PRN (20:30)
[2018-09-09] MEDS ORDERED: NA PHOSPHATE/BIPHOS 133 ML ENEMA PR PRN (20:30)
[2018-09-09] MEDS ORDERED: LACTATED RINGER'S 1,000 ML IV ONE (20:49)
--- NOTE | 2018-09-09 20:49 | PREAC ---
Date/Time of Note Date/Time of Note DATE: 09/09/18 TIME: 20:45 Anesthesia Eval and Record Evaluation Time Pre-Procedure Interview DATE: 09/09/18 TIME: 19:56 Age 42 Sex female NPO: 8 hrs Preoperative diagnosis iup @ 34 wks., chtn. and pih, type 2 dm, prev. c/s, non reassuring status Planned procedure repeat c/s Past Medical History Past Medical History: Includes Cardio: HTN, Other (pih) Endo: Diabetes (type 2 dm) : : (2), Para: (1), Gestational age: (34 wks.), Gestational diabetes (type 2 dm), PIH, Other (chtn) Surgery & Anesthesia Issues No known issue Meds Anticoagulation: No Beta Debora within 24 hr: Yes Reported Medications Labetalol Hcl (Labetalol Hcl) 100 Mg Tab, 100 MG PO BID, TAB 09/09/18 Metformin Hcl* (Metformin Hcl*) 500 Mg Tablet, 500 MG PO WITH BREAKFAST, #30 TAB 09/03/18 Vit #105/Iron/FA/Dha (Prena1 True Combo Pack) 1 Each Combo..pkg, 1 EACH PO 09/03/18 Current Medications Lactated Ringer's 1,000 ml @ 125 mls/hr Q8H IV Last administered on 09/09/18at 19:54; Admin Dose 125 MLS/HR; Start 09/09/18 at 12:59 Oxytocin/Lactated Ringer's 500 ml @ 125 mls/hr POST IV ; Start 09/09/18 at 13:00 Oxytocin/Lactated Ringer's 500 ml @ 0 mls/hr ONCE PRN IV .VAGINAL BLEEDING; Start 09/09/18 at 13:00 Methylergonovine Maleate (Methergine) 0.2 mg ONCE PRN IM .VAGINAL BLEEDING; Start 09/09/18 at 13:00 Carboprost Tromethamine (Hemabate) 250 mcg ONCE PRN IM .VAGINAL BLEEDING; Start 09/09/18 at 13:00 Misoprostol (Cytotec) 1,000 mcg ONCE PRN OK .VAGINAL BLEEDING; Start 09/09/18 at 13:00 Dextrose/Lactated Ringer's 1,000 ml @ 125 mls/hr Q8H ONCE IV Last administered on 09/09/18at 19:45; Admin Dose 125 MLS/HR; Start 09/09/18 at 19:30; Stop 09/10/18 at 03:29 Lactated Ringer's 1,000 ml @ 125 mls/hr Q8H IV ; Start 09/09/18 at 20:20; Stop 09/10/18 at 00:19 Oxycodone/ Acetaminophen (Percocet (5/ 325)) 1 tab Q4H PRN PO .PAIN 4-6; Start 09/09/18 at 20:30 Oxycodone/ Acetaminophen (Percocet (5/ 325)) 2 tab Q4H PRN PO .PAIN 7-10; Start 09/09/18 at 20:30 Simethicone (Mylicon) 160 mg Q8H PRN PO .GAS; Start 09/09/18 at 20:30 Senna/Docusate Sodium (Senokot-S) 1 tab BID PO ; Start 09/09/18 at 21:00 Sodium Biphosphate/ Sodium Phosphate (Fleet Enema) 133 ml DAILY PRN OK .CONSTIPATION; Start 09/09/18 at 20:30 Lanolin (Lanolin Hpa) 1 applic BEDSIDE MEDICATION PRN TOP .NIPPLES; Start 09/09/18 at 20:30 Diphtheria/ Tetanus/Acell Pertussis (Adacel) 0.5 ml ONCE ONCE IM* ; Start 09/12/18 at 09:00; Stop 09/12/18 at 09:01 Measles/Mumps/ Rubella Vaccine Live (Mmr Ii Vaccine) 0.5 ml ONCE ONCE SC* ; St art 09/12/18 at 09:00; Stop 09/12/18 at 09:01 Misoprostol (Cytotec) 1,000 mcg ONCE PRN OK .VAGINAL BLEEDING; Start 09/09/18 at 20:30 Labetalol HCl (Normodyne) 200 mg Q8 PO ; Start 09/09/18 at 22:00 Hydralazine HCl (Apresoline) 50 mg Q8 PRN PO ELEVATED BLOOD PRESSURE; Start 09/09/18 at 20:30; Status UNV Nifedipine (Procardia) 10 mg Q6 PRN PO ELEVATED BLOOD PRESSURE; Start 09/09/18 at 20:30 Meds reviewed: Yes Allergies Coded Allergies: No Known Drug Allergies (Verified Allergy, Unknown, 09/09/18) Allergies Reviewed: Yes Labs/Studies Labs Reviewed: Reviewed by anesthesiologist Result Diagram: 09/09/18 1241 09/09/18 1241 Laboratory Tests 09/09/18 12:41 Blood Bank Test 09/09/18 12:41 09/09/18 20:20 Antibody Screen NEGATIVE Blood Type A POSITIVE Rh Immune Globulin Candidate NO Blood Product Summary Counts test: Positive Studies: ECG (n/a), CXR (n/a) Pre-procedure Exam Airway: Adequate mouth opening, Adequate thyromental dist Mallampati: Mallampati II Teeth: Normal Lung: Normal Heart: Normal ASA Physical Status ASA physical status: 3 Emergency: E Planned Anesthetic General/MAC: MAC Neuraxial: Spinal Planned Pain Management Sub-arachniod narcotics, Local by surgeon Pre-operative Attestations Prior to commencing anesthesia and surgery, the patient was re-evaluated, there was verification of: *The patient's identity *The results of appropriate recent lab work and preoperative vital signs *The above evaluation not changing prior to induction *Anesthetic plan, risk benefits, alternative and complications discussed with patient/family; questions answered; patient/family understands, accepts and wishes to proceed. Box Printer used ARJUN JOHNSON MD September 09, 2018 20:49
[2018-09-09] MEDS ORDERED: ONDANSETRON 4 MG INJ ONE (20:55)
[2018-09-09] MEDS ORDERED: MIDAZOLAM 1 MG/ML 2 ML INJ ONE (20:55)
[2018-09-09] MEDS ORDERED: OXYTOCIN 10 UNIT INJ ONE ×2 (20:55→21:30)
[2018-09-09] MEDS ORDERED: NALBUPHINE HCL (10 MG/1 ML) INJ IV PRN (21:00)
[2018-09-09] MEDS ORDERED: MIDAZOLAM 1 MG/ML 2 ML INJ IV PRN (21:00)
[2018-09-09] MEDS ORDERED: LORAZEPAM 2 MG INJ IV PRN (21:00)
[2018-09-09] MEDS ORDERED: MEPERIDINE 25 MG INJ IV PRN (21:00)
[2018-09-09] MEDS ORDERED: NALOXONE (0.4 MG/ML) INJ IV PRN (21:00)
[2018-09-09] MEDS ORDERED: HYDROmorphONE 0.5 MG/0.5 ML SYG IV PRN ×2 (21:00)
[2018-09-09] MEDS ORDERED: DIPHENHYDRAMINE 50 MG INJ IV PRN ×2 (21:00)
[2018-09-09] MEDS ORDERED: ZOLPIDEM 5 MG TAB PO PRN (21:00)
[2018-09-09] MEDS: SENNA/DOCUSATE NA (8.6MG/50MG) TAB PO SCH (21:00)
[2018-09-09] MEDS ORDERED: ONDANSETRON 4 MG INJ IV PRN (21:00)
[2018-09-09] MEDS ORDERED: KETOROLAC 30 MG INJ IV PRN (21:00)
[2018-09-09] MEDS ORDERED: PHENYLephrine (100 MCG/ML) 10ML SYG ONE (21:36)
[2018-09-09] MEDS ORDERED: OXYTOCIN 30 UNITS/LR 500 ML IV ONE ×2 (21:36)
--- NOTE | 2018-09-09 21:36 | OPR ---
Date/Time of Note Date/Time of Note DATE: 09/09/18 TIME: 21:33 Operative Report Procedure Date: September 09, 2018 Preoperative Diagnosis IUP at 34.1 weeks Chronic hypertension with superimposed PIH with severe features. had steroids already Diabetes Obesity h/o C/S Postoperative Diagnosis same Operation/Procedure Performed Repeat delivery Surgeon Trupti Mora MD Nurses Director Dr. Powers Anesthesia Type: spinal Estimated Blood Loss: other (700 ml) Transfusion none Specimen none Grafts/Implants none Tubes/Drains Moreno Cath Complications none Pt Condition Post Procedure: stable Disposition: PACU Procedure Description The risks, benefits, indications, alternatives of procedure including, but not limited to risk of infection, bleeding, damage to other organs, bowel, bladder, hernia formation, scar formation, possibility of blood transfusions discussed with patient. She was allowed to ask questions. All her questions were answered. Informed consent was obtained. DESCRIPTION OF PROCEDURE: She was taken to the operating room. Spinal anesthesia was induced. She was prepped and draped in the usual sterile fashion. Surgical time out one. Anesthesia was tested to be adequate. With permission from anesthesiologist, a knife was used to make a Pfannenstiel skin incision. The incision was taken down in layers. The fascia was cut, undermined and from the underlying muscle using sharp and blunt dissection. All the bleeders were cauterized. Peritoneum was entered bluntly. A low transverse incision was developed over the uterus. Amniotic fluid was clear and adequate. A viable infant in vertex presentation was delivered without any difficulty. The cord was clamped and cut, handed to awaiting team. Placenta was then delivered. Uterus was exteriorized, wrapped around a moist lap. Inside uterus was cleaned using a dry lap. All residual membranes were removed. The uterine incision was then closed using #1 Monocryl in 2 layers. The uterus was inserted back inside the abdominal cavity. Irrigation was done carefully. Careful evaluation of the uterine incision revealed no further bleeding. The peritoneum and rectus muscles and fascia were evaluated. All bleeders cauterized. Peritoneum was closed using 2-0 Monocryl. At this time, the count was correct. Rectus muscle was reapproximated using 2-0 Monocryl. Rectus fascia was closed using #1 Vicryl. Subcutaneous tissue was cleaned and irrigated. All bleeders cauterized and the skin closed using 4-0 Monocryl. All counts correct. TRUPTI MORA MD September 09, 2018 21:36
[2018-09-09] MEDS: LABETALOL 200 MG TAB PO SCH (22:18)
[2018-09-09] MEDS: LABETALOL HCL 20MG INJ IV PRN ×2 (22:50→23:48)
[2018-09-10] VITALS (18 sets, daily range): BP systolic 110–156; BP diastolic 62–93; PULSE 89–112; RESP 16–25
[2018-09-10] MEDS: LABETALOL HCL 20MG INJ IV PRN (00:24)
[2018-09-10] MEDS ORDERED: LACTATED RINGER'S 1,000 ML IV SCH (01:42)
--- NOTE | 2018-09-10 04:03 | PAC ---
Date/Time of Note Date/Time of Note DATE: 09/10/18 TIME: 04:03 Post-Anesthesia Notes Post-Anesthesia Note Last documented vital signs Vital Signs Date Temp Pulse Resp B/P (MAP) Pulse Ox O2 O2 Flow FiO2 Time Delivery Rate 09/10/18 98.5 108 22 145/90 97 Nasal 2.0 03:30 (108) Cannula Activity: WNL Respiratory function: WNL Cardiovascular function: WNL Mental status: Baseline Pain reasonably controlled: Yes Hydration appropriate: Yes Nausea/Vomiting absent: Yes ARJUN JOHNSON MD September 10, 2018 04:03
--- NOTE | 2018-09-10 04:05 | OPPN ---
Date/Time of Note Date/Time of Note DATE: 09/10/18 TIME: 04:04 Anesthesia Follow up Anesthesia Follow up Last documented vital signs Vital Signs Date Temp Pulse Resp B/P (MAP) Pulse Ox O2 O2 Flow FiO2 Time Delivery Rate 09/10/18 98.5 108 22 145/90 97 Nasal 2.0 03:30 (108) Cannula Respiratory function: WNL Cardiovascular function: WNL Comments S: pt. is POD #1. min. bt. pain. min. need for bt. pain meds ie. nsaids/opiates. min. n/v. ambulating. O: vss, afeb. A: min. bt. pain sec. to it mso4. P: no complications. ARJUN JOHNSON MD September 10, 2018 04:05
[2018-09-10] MEDS: LABETALOL 200 MG TAB PO SCH ×3 (05:56→21:56)
[2018-09-10] MEDS: SENNA/DOCUSATE NA (8.6MG/50MG) TAB PO SCH ×2 (08:41→21:55)
[2018-09-10] MEDS: metFORMIN 500 MG TAB PO SCH ×2 (08:42→17:54)
[2018-09-10] MEDS: PIPER-TAZO 3.375 GM IV (PMX) 100 ML IVPB SCH ×3 (08:43→21:55)
--- NOTE | 2018-09-10 14:40 | QN ---
Documentation Comment Postop day #1 Status post repeat Patient is coughing, denies shortness of breath , denies chest pain Fever of 103 at 10 AM O2 sat 97-99% on 2 L of oxygen VS - Last 72 Hours, by Label Date Temp Pulse Resp B/P (MAP) Pulse Ox O2 O2 Flow FiO2 Time Delivery Rate 09/10/18 98.4 89 17 121/70 97 Nasal 13:41 (87) Cannula 09/10/18 100.2 102 16 138/83 98 2.0 12:00 (101) 09/10/18 102.9 105 16 142/78 98 Room Air 2.0 10:48 (99) 09/10/18 103.0 106 18 130/80 Room Air 10:00 (97) 09/10/18 112 145/89 97 2.0 09:00 (107) 09/10/18 100.5 102 17 142/89 Room Air 08:00 (106) 09/10/18 99.3 112 24 156/92 97 Nasal 2.0 06:30 (113) Cannula 09/10/18 99.6 111 22 148/84 98 Nasal 2.0 05:30 (105) Cannula 09/10/18 99.5 108 25 146/84 97 Nasal 2.0 04:30 (104) Cannula 09/10/18 98.5 108 22 145/90 97 Nasal 2.0 03:30 (108) Cannula 09/10/18 98.5 103 25 153/93 97 Nasal 2.0 02:30 (113) Cannula 09/10/18 98.6 111 24 149/87 96 Nasal 2.0 01:30 (107) Cannula Hematology - 72 Hrs Test 09/09/18 12:41 09/10/18 06:21 Hematocrit 32.5 % (37.0-47.0) L 29.4 % (37.0-47.0) L Hemoglobin 10.3 g/dl (12.0-16.0) L 9.3 g/dl (12.0-16.0) L Mean Corpuscular 27.0 pg (29.0-33.0) L 27.3 pg (29.0-33.0) L Hemoglobin Mean Corpuscular 31.7 g/dl (32.0-37.0) L 31.6 g/dl (32.0-37.0) L Hemoglobin Concent Mean Corpuscular Volume 85.3 fl (82.0-101.0) 86.2 fl (82.0-101.0) Mean Platelet Volume 11.2 fl (7.4-10.4) H 11.6 fl (7.4-10.4) H Platelet Count 175 10^3/UL (140-415) 160 10^3/UL (140-415) Red Blood Count 3.81 10^6/ul (4.20-5.40) 3.41 10^6/ul (4.20-5.40) L L Red Cell Distribution 16.6 % (11.5-14.5) H 16.5 % (11.5-14.5) H Width White Blood Count 7.9 10^3/ul (4.8-10.8) 9.6 10^3/ul (4.8-10.8) # Chemistry Test 09/09/18 10:49 09/09/18 12:41 09/09/18 17:04 09/10/18 08:21 Bedside 73 71 102 Glucose mg/dL (70-220) mg/dL (70-220) mg/dL (70-220) Sodium Level 139 mmol/L (135-14 4) Potassium 4.1 Level mmol/L (3.5-5. 1) Chloride Level 110 mmol/L (97-110 ) Carbon Dioxide 22 Level mmol/L (21-31) Anion Gap 7 (5-13) Blood Urea 8 mg/dl Nitrogen (7-20) Creatinine 0.53 mg/dl (0.44-1. 00) Est Glomerular > 60 Filtrat mL/min (>60) Rate mL/min Glucose Level 77 mg/dl (70-220) Uric Acid 4.4 mg/dl (3.1-7.9 ) Calcium Level 9.3 mg/dl (8.4-10. 2) Total 0.6 Bilirubin mg/dl (0.2-1.3 ) Direct 0.00 Bilirubin mg/dl (0.00-0. 20) Indirect 0.6 Bilirubin mg/dl (0-1.1) Aspartate Amino 27 Transf (AST/SGO IU/L (15-46) T) Alanine 31 Aminotransferas IU/L (13-69) e (ALT/SGPT) Alkaline 124 Phosphatase IU/L (42-121) H Total Protein 6.8 g/dl (6.1-8.1) Albumin 3.5 g/dl (3.3-4.9) Globulin 3.30 g/dl (1.3-3.2) H Albumin/Globuli 1.06 n Ratio Test 09/10/18 10:45 Bedside 111 Glucose mg/dL (70-220) PROCEDURE: XR Chest - 2-views. CLINICAL INDICATION: Shortness of breath TECHNIQUE: AP and lateral view of the chest were obtained. COMPARISON: None FINDINGS: Cardiac/vascular structures: Normal cardiomediastinal silhouette. Pulmonary: Lungs are clear. No pleural effusion. No evidence of pneumothorax. Osseous structures: Normal Soft tissues: Normal IMPRESSION: No acute cardiopulmonary disease. RPTAT:AAJJ Physician Ji Date Time Electronically viewed and signed by Donn Brewster Physician on 09/09/2018 13:23 MH/ CC: JASSON WORLEY MD [phone] Abdomen soft, fundus firm Incision clean,dry,intact Extremities nontender Assessment and plan Blood cultures x2 Urinalysis and urine culture Chest x-ray negative Lovenox 40 mg subQ daily Continue with Zosyn IV Repeat labs in a.m. Encouraged to ambulate REESE VERDUGO MD September 10, 2018 14:40
[2018-09-10] MEDS: ENOXAPARIN 40 MG/0.4 ML SYG SC SCH (16:05)
[2018-09-10] MEDS: ACETAMINOPHEN 325 MG TAB PO PRN ×2 (18:03→22:24)
[2018-09-10] MEDS ORDERED: SOD CHLORIDE 0.9% 100 ML ONE (19:38)
[2018-09-10] MEDS ORDERED: IOHEXOL 100 ML ONE (19:38)
[2018-09-11] VITALS (8 sets, daily range): BP systolic 115–149; BP diastolic 63–90; PULSE 81–109; RESP 18–26
[2018-09-11] MEDS: PIPER-TAZO 3.375 GM IV (PMX) 100 ML IVPB SCH ×3 (05:56→22:53)
[2018-09-11] MEDS: ACETAMINOPHEN 325 MG TAB PO PRN ×2 (05:56→13:58)
[2018-09-11] MEDS: LABETALOL 200 MG TAB PO SCH ×3 (05:57→22:06)
[2018-09-11] MEDS: SENNA/DOCUSATE NA (8.6MG/50MG) TAB PO SCH ×2 (08:37→22:06)
[2018-09-11] MEDS: metFORMIN 500 MG TAB PO SCH ×2 (08:37→17:54)
[2018-09-11] MEDS: ENOXAPARIN 40 MG/0.4 ML SYG SC SCH ×2 (08:38→23:35)
[2018-09-11] MEDS: GUAIFENESIN 20 MG/ML 5ML CUP PO PRN ×3 (12:24→22:10)
--- NOTE | 2018-09-11 22:43 | QN ---
Documentation Comment s/p c/s Subjective: no complaint Objective: Afebrile, VSS NAD A&O Abdomen: Obese, soft, appropriate tender Incision: no sign of bleeding/infection mild lochia Extremity: 1+ edema bilaterally Assessment: S/p C/S POD # 2 Post op Fever. on Zosyn DM CHTN and PIH Plan: current care Zosyn and increase Lovenox to BID JASSON WORLEY MD September 11, 2018 22:43
[2018-09-12] MEDS: GUAIFENESIN 20 MG/ML 5ML CUP PO PRN ×4 (03:01→23:15)
[2018-09-12 04:00] VITALS: BP 139/90; PULSE 76; RESP 19
[2018-09-12] MEDS: PIPER-TAZO 3.375 GM IV (PMX) 100 ML IVPB SCH ×3 (05:37→23:06)
[2018-09-12] MEDS: LABETALOL 200 MG TAB PO SCH ×3 (05:37→22:24)
[2018-09-12 08:03] VITALS: BP 131/86; PULSE 74; RESP 18
[2018-09-12] MEDS: SENNA/DOCUSATE NA (8.6MG/50MG) TAB PO SCH ×2 (08:21→22:22)
[2018-09-12] MEDS: metFORMIN 500 MG TAB PO SCH ×2 (08:21→16:56)
[2018-09-12] MEDS: ENOXAPARIN 40 MG/0.4 ML SYG SC SCH ×2 (08:24→22:24)
[2018-09-12] MEDS ORDERED: DIPHTH/TET/ACEL PERTUSS (ADULT) 0.5 ML VIAL IM* ONE (09:00)
[2018-09-12] MEDS ORDERED: ENOXAPARIN 40 MG/0.4 ML SYG SC SCH (09:00)
[2018-09-12] MEDS ORDERED: MEASLES,MUMPS,RUBELLA VACCINE INJ SC* ONE (09:00)
[2018-09-12 13:38] VITALS: BP 120/67; PULSE 73; RESP 18
--- NOTE | 2018-09-12 14:45 | QN ---
Documentation Comment s/p c/s Subjective: no complaint Objective: Afebrile, VSS NAD A&O Abdomen: soft, appropriate tender Incision: no sign of bleeding/infection mild lochia Extremity: 1+ edema bilaterally Assessment: S/p C/S POD # 3 she is high risk due to DM and elevated BP Recovering Well Plan: current care JASSON WORLEY MD September 12, 2018 14:45
[2018-09-12 16:33] VITALS: BP 129/78; PULSE 68; RESP 18
[2018-09-12 20:00] VITALS: BP 151/90; PULSE 76; RESP 18
[2018-09-12 22:24] VITALS: BP 153/88; PULSE 81; RESP 18
[2018-09-13 00:57] VITALS: BP 139/88; PULSE 76; RESP 18
[2018-09-13] MEDS: GUAIFENESIN 20 MG/ML 5ML CUP PO PRN (03:16)
[2018-09-13 04:05] VITALS: BP 152/96; PULSE 76; RESP 18
[2018-09-13 05:58] VITALS: BP 152/96; PULSE 75
[2018-09-13] MEDS: LABETALOL 200 MG TAB PO SCH (06:01)
[2018-09-13] MEDS: PIPER-TAZO 3.375 GM IV (PMX) 100 ML IVPB SCH (06:04)
[2018-09-13 08:00] VITALS: BP 134/84; PULSE 80; RESP 18
[2018-09-13] MEDS: metFORMIN 500 MG TAB PO SCH (08:32)
[2018-09-13] MEDS: ENOXAPARIN 40 MG/0.4 ML SYG SC SCH (08:34)
[2018-09-13] MEDS: SENNA/DOCUSATE NA (8.6MG/50MG) TAB PO SCH (08:35)
--- NOTE | 2018-09-13 08:47 | DS ---
Date/Time of Note Date/Time of Note DATE: 09/13/18 TIME: 08:40 Obstetrical Discharge Record Final Diagnosis Final Diagnosis: delivered Other Final Diagnosis patient with CHTN, DM, Obesity and superimposed gestational hypertension underwent repeat c/s. she al;so c/o difficulty breathing. CT pulmonary angio was negative for PE, but may have infection. had fever, was treated with Zosyn. now afebrile > 48 hours. + BM, ambulating well. she strongly desires to go home. BS are controlled on Metformin. I provided Rx for Hurley prn # 30, Labetalol 200 mg TID # 90, Procardia XL 60 mg daily # 30, Keflex 500 mg Q 6 hours # 20, Zithromax 500 mg daily # 5 tabs. Proper instructions to monitor her BP and Temp and ER precautions given in her [place] language. she verbalized her understanding. she is aware that she needs to be seen in her [facility] clinic next week for BP check and incision check. Section Section: Repeat Complications Preg induced Hypertension, Other (CHTN, DM, Obesity and superimposed gestational hypertension) Augmentation: No Induction: No Rupture of Membranes: No Condition on Discharge Physical Assessment Voiding: Yes Bowel Movement: Yes Breast: Soft, non-tender, Filling Fundus: Firm Abdomen and Incision: soft, obese, appropriate tenderness. incision is clean and intact, no erythema or discharge Calf Tenderness: No Patient Condition: Good JASSON WORLEY MD September 13, 2018 08:47
[2018-09-13] MEDS ORDERED: NIFEdipine (XL) 60 MG TAB PO SCH (09:00)
[2018-09-13 15:00] VITALS: BP 128/76; PULSE 72; RESP 18
--- NOTE | 2018-09-14 16:39 | DELSUM ---
Delivery Summary A-C Datetime Report Generated by CPN: 09/14/2018 16:38 DELIVERY PERSONNEL Manager Oracle Database: Anaya Allen MATERNAL INFORMATION Delivery Anesthesia: Spinal Medications in Delivery: see anesthesia Delivery QBL (ml): 700 Placenta Cultured: No Maternal Complications: Other Other Maternal Complications: CHRONIC HYPERTENSION FOR 19 YEARS (TAKING LABETALOL) DIABETES FOR 2 YEARS (TAKING METFORMIN) LABOR SUMMARY EDC: 10/17/2018 00:00 No. Babies in Womb: 1 Attempted: No Labor Anesthesia: None LABOR INFORMATION Reason for Induction: Not Applicable Oxytocin: N/A Group B Beta Strep: Not Done Antibiotics # of Doses: ANCEF 3 GRAMS Antibiotics Time of Last Dose: 09/09/2018 20:22 Steroids Given: Full Course Reason Steroids Not Administered: Indication MEMBRANES Membranes Rupture Method: Artificial Rupture of Membranes: 09/09/2018 20:52 Length of Rupture (hr): 0.02 Amniotic Fluid Color: Clear Amniotic Fluid Amount: Large Amniotic Fluid Odor: Normal STAGES OF LABOR Stage 3 hr: 0 Stage 3 min: 1 CSECTION DELIVERY Primary Indication: Repeat Elective Secondary Indication: N/A CSection Urgency: Non Elective CSection Incidence: Repeat Labor: No Labor Elective: Nonelective CSection Incision: Lower Uterine Transverse BABY A INFORMATION Infant Delivery Date/Time: 09/09/2018 20:53 Method of Delivery: Born in Route : No : N/A Forceps: N/A Vacuum Extraction: N/A Shoulder Dystocia : N/A SHOULDER DYSTOCIA BABY A Infant Delivery Date/Time: 09/09/2018 20:53 PRESENTATION/POSITION BABY A Presentation: Cephalic Cephalic Presentation: Vertex Vertex Position: Left Occipital Anterior Breech Presentation: N/A PLACENTA INFORMATION BABY A Placenta Delivery Time : 09/09/2018 20:54 Placenta Method of Delivery: Manual Removal Placenta Status: Delivered SCORES BABY A Heart Rate 1 min: >100 bpm Resp Effort 1 min: Good Cry Reflex Irritability 1 min: Cough/Sneeze/Pulls Away Muscle Tone 1 min: Active Motion Color 1 min: Blue/Pale Resuscitation Effort 1 min: Tactile Stimulation; Oxygen; PPV/NCPAP SCORE 1 MIN: 8 Heart Rate 5 min: >100 bpm Resp Effort 5 min: Good Cry Reflex Irritability 5 min: Cough/Sneeze/Pulls Away Muscle Tone 5 min: Active Motion Color 5 min: Body [place], Extremit Blue Resuscitation Effort 5 min: Tactile Stimulation SCORE 5 MIN: 9 INFORMATION BABY A Gestational Age at Delivery: 34.4 Gestational Status: Late - 34- 36.6 Weeks Infant Outcome : Liveborn Infant Condition : Stable Sex: Female IDENTIFICATION/MEDS BABY A ID Band Number: [id number] ID Band Location: Right Leg; Left Arm Sensor Applied: No Vitamin K Given : Not Given Erythromycin Given: Not Given WEIGHT/LENGTH BABY A Infant Birthweight (gm): 3785 Weight (lb): 8 Weight (oz): 6 Infant Length (in): 20.00 Length (cm): 50.80 CORD INFORMATION BABY A No. Cord Vessels: 3 Nuchal Cord : N/A Cord Blood Taken: Yes Suction: Mouth; Nose ASSESSMENT BABY A Physical Findings at Delivery: Within Normal Limits Respirations: Appears Normal Winding Rack Operator/ALS Called : Yes Care By: Kirti SIMMONS RN Transferred To: NICU
== END 2018-09-13 16:00 | disposition home or self-care (01) | DRG 786 ==
LOC: OBT 10:18 → L-D 10:20 → OBT 12:47 → L-D 12:47 → PP1 09-10 01:25
PROVIDERS: ADMIT Specialist; ATTEND Specialist
PROC: 10D00Z1 Extraction of Products of Conception, Low, Open Approach (ICD-10-PCS; principal; 2018-09-09 20:45)
DX: O65.5 Obstructed labor due to abnormality of maternal pelvic organs (principal); O60.13X0 Preterm labor second trimester with preterm delivery third trimester, not applicable or unspecified; O24.12 Pre-existing type 2 diabetes mellitus, in childbirth; O10.92 Unspecified pre-existing hypertension complicating childbirth; O34.211 Maternal care for low transverse scar from previous cesarean delivery; O13.4 Gestational [pregnancy-induced] hypertension without significant proteinuria, complicating childbirth; E11.9 Type 2 diabetes mellitus without complications; O99.214 Obesity complicating childbirth; Z3A.34 34 weeks gestation of pregnancy; Z37.0 Single live birth
CPT/HCPCS: 71046; 71275; 76815; 76818; 80053; 81001; 81003; 82570; 82962; 83605; 84560; 85025; 85378; 85610; 85730; 86592; 86850; 86900; 86901; 87086; 99464; G0463; J0690; J1650; J1885; J2250; J2274; J2370; J2405; J2543; J2590; J7120; J7121; Q9967